=== PATIENT | female | born 2000 | race Caucasian/White ===

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

== ENCOUNTER 2018-07-13 14:51 | Emergency (ER) | payer OTHER ==
[2018-07-13 14:56] VITALS: BP 112/82
[2018-07-13] MEDS ORDERED: OXYCODONE/APAP 5/325 TAB PO ONE (15:37)
[2018-07-13] MEDS ORDERED: BENZOCAINE UNIT DOSE SPRAY HURRICAINE MM ONE (15:58)
--- NOTE | 2018-07-13 16:12 | EDPHY ---
General Time Seen by Provider: 07/13/18 15:37 Narrative: CHIEF COMPLAINT: Dental pain HISTORY OF PRESENT ILLNESS: Patient presents by private vehicle with her bike with complaints of dental pain. Dental pain started last night. It involves the upper and lower molars. It is described as a moderate to severe pain. Constant duration. Worse with warmth and when eating. No improvement. No difficulty opening closing mouth. No fever. She thinks that her wisdom teeth are "coming in." She has no systemic complaints. She denies any IV drug abuse. She denies any opiate use dependency. She has no headache. She sees a dentist back in [place] every 6 months. She reports previous dental caries. No dental surgery. No other associated complaints or modifying factors. REVIEW OF SYSTEMS: 10 systems were reviewed and negative with the exception of the elements mentioned in the history of present illness. PCP: None locally SPECIALISTS: None PAST MEDICAL HISTORY: Depression, insomnia. Nexplanon in place PAST SURGICAL HISTORY: No recent surgical history. No dental surgery SOCIAL HISTORY: Nonsmoker. Occasional alcohol. Occasional marijuana use. [employer] student. Originally from [place] FAMILY HISTORY: Noncontributory EXAMINATION: General Appearance: Alert, no distress. Well appearing. Head: normocephalic, atraumatic Eyes: Pupils equal and round, no conjunctival pallor or injection ENT, Mouth: Mucous membranes moist. Airway is widely patent. There is no evidence of pulpitis or dental abscess at any location. She has no trismus. Her airway is widely patent. Neck: Normal inspection, supple, non-tender Skin: Warm and dry, no rash. No splinter hemorrhages of the nails. Psychiatric: Mood and affect normal DIFFERENTIAL DIAGNOSES: Including but not limited to dental caries, dental abscess, pulpitis, wisdom tooth eruption MDM: 3:30 p.m. Dental pain of the right upper molars and right lower molars over the past 24 hr. The patient thinks that her wisdom teeth may be erupting. I do not appreciate any signs of pulpitis, abscess or infection associated with dental caries. There is no trismus. No abnormality of the airway. Uvula is midline. I have ordered oral pain medication and offered a dental block. She would like to consider this. 4:00 p.m. Patient has elected for dental block. I performed 2 dental block as below. She has complete resolution of her pain. We discussed follow up with dental aid , dentist or dental surgeon for imaging and further care. We discussed ED precautions for redness, warmth, fever signs of infection. We discussed ibuprofen 600 mg every 6 hr. We discussed short course of pain medication. I have answered all her questions. She is well-appearing and discharged home stable condition. PROCEDURE: Dental block, 1. Indication: Dental pain Consent: Verbal Location: Right inferior alveolar Anesthesia: Lidocaine 1% plain, 0.25% Marcaine plain, 5mL Description: The right pterygomandibular raphe was identified. 27 gauge needle was inserted into the raphe and the above was infused without difficulty. Excellent anesthesia. Tolerated well. Complications: None PROCEDURE: Dental block, 2. Indication: Dental pain Consent: Verbal Location: Right infraorbital Anesthesia: Lidocaine 1% plain, 0.25% Marcaine plain, 5mL Description: Right upper periosteal mucosa was palpated. The above was infused without difficulty taking care to drop back pressure infusion. Tolerated well. Excellent anesthesia. Complications: None SUPERVISION: This patient was independently evaluated without direct involvement of or examination by the attending physician. CONSULTATION: None - History Smoking Status: Never smoked - Objective Vital Signs: Initial Vital Signs Temperature (C) 97.7 F 07/13/18 14:54 Heart Rate 61 07/13/18 14:54 Respiratory Rate 18 07/13/18 14:54 Blood Pressure 112/82 H 07/13/18 14:54 O2 Sat (%) 100 07/13/18 14:54 O2 Delivery Mode Room Air Allergies/Adverse Reactions: No Known Allergies Allergy (Verified 07/13/18 14:53) Home Medications: Medication Instructions Recorded Nexplanon 07/13/18 PRISTIQ 07/13/18 oxyCODONE HCL/ACETAMINOPHEN 1 each PO Q4-6PRN PRN #20 tablet 07/13/18 [Percocet 5-325 mg Tablet] traZODone 07/13/18 Medications Given: Discontinued Medications Oxycodone/Acetaminophen (Percocet 5/325) 1 tab PO EDNOW ONE Stop: 07/13/18 15:38 Last Admin: 07/13/18 15:57 Dose: 1 tab Departure - Departure Disposition: Home, Routine, Self-Care Clinical Impression: Pain, dental Condition: Good Instructions: Toothache (ED) Additional Instructions: 1. Ibuprofen 600 mg every 6-8 hours 2. Pain medication as prescribed as needed. 3. Contact dental surgeon or dentist for outpatient definitive care 4. ED precautions for redness, drainage, fever, difficulty opening closing her mouth Referrals: Dave Servin DDS [Doctor of Dental Surgery] - As per Instructions Dental Aid [Outside] - As per Instructions Prescriptions: oxyCODONE HCL/ACETAMINOPHEN [Percocet 5-325 mg Tablet] 1 each PO Q4-6PRN PRN # 20 tablet PRN Reason: Pain, Breakthrough
== END 2018-07-13 16:24 | disposition home or self-care (01) ==
PROC: 3E0X3BZ Introduction of Anesthetic Agent into Cranial Nerves, Percutaneous Approach (ICD-10-PCS; principal; 2018-07-13)
DX: K08.89 Other specified disorders of teeth and supporting structures (principal)